=== PATIENT | female | born 1960 | race Two or more races ===

== ENCOUNTER 2023-10-26 14:13 | Emergency (ER) | payer OTHER ==
[~2023-10-26] VITALS: Ht 170.2 cm; Wt 74.2 kg
[2023-10-26] MEDS ORDERED: ACETAMINOPHEN 500 MG TAB PO ONE (15:30)
[2023-10-26 15:31] VITALS: BP 128/73; PULSE 80; RESP 18; TEMP 98.1; O2SAT 98
[2023-10-26] MEDS ORDERED: ACET500T58 PO (17:12)
[2023-10-26] MEDS ORDERED: IBUP-1454 PO (17:12)
== END 2023-10-26 18:10 | disposition home or self-care (01) ==
LOC: ER 14:13
DX: S16.1XXA Strain of muscle, fascia and tendon at neck level, initial encounter (principal); S09.90XA Unspecified injury of head, initial encounter; T14.8XXA Other injury of unspecified body region, initial encounter; M79.631 Pain in right forearm; Y04.2XXA Assault by strike against or bumped into by another person, initial encounter; Y93.89 Activity, other specified; Y92.89 Other specified places as the place of occurrence of the external cause; Y99.8 Other external cause status
CPT/HCPCS: 70450; 72125